=== PATIENT | female | born 1950 | race Caucasian/White ===

== ENCOUNTER 2021-02-01 05:13 | Inpatient (IN) ==
--- NOTE | 2021-01-04 13:47 | PAT Medication Instructions ---
Medication Instructions Date of Service January 04, 2021 Home Medications acetaminophen 500 mg tablet 500 mg PO Q6H PRN ascorbic acid (vitamin C) 1,000 mg tablet 1 g PO QAM biotin 10,000 mcg capsule 10,000 mcg PO QAM calcium carbonate 600 mg (1,500 mg)-vitamin D3 2,500 unit capsule 1 cap PO BID dofetilide 250 mcg capsule 250 mcg PO Q12H metoprolol succinate 50 mg tablet,extended release 24 hr 50 mg PO QAM qbmshqdwapyo-ykghdbfm-vokxbt tablet 1 tab PO QAM vitamin B comp and C no.3 15 mg-10 mg-50 mg-5 mg-300 mg capsule 1 cap PO QAM warfarin 5 mg tablet 5 mg PO DAILY tramadol 50 mg PO BID PRN ASK your prescriber and surgeon warfarin 5 mg tablet 5 mg PO DAILY STOP taking 2 weeks before surgery biotin 10,000 mcg capsule 10,000 mcg PO QAM DO NOT take the morning of surgery ascorbic acid (vitamin C) 1,000 mg tablet 1 g PO QAM calcium carbonate 600 mg (1,500 mg)-vitamin D3 2,500 unit capsule 1 cap PO BID dlcqkairauuj-zulohfwk-hvfafl tablet 1 tab PO QAM vitamin B comp and C no.3 15 mg-10 mg-50 mg-5 mg-300 mg capsule 1 cap PO QAM Take morning of surgery With a small sip of water, OTHERWISE NOTHING TO EAT OR DRINK AFTER MIDNIGHT: acetaminophen 500 mg tablet 500 mg PO Q6H PRN (okay to take up to 4 hours prior to surgery if needed) dofetilide 250 mcg capsule 250 mcg PO Q12H metoprolol succinate 50 mg tablet,extended release 24 hr 50 mg PO QAM tramadol 50 mg PO BID PRN (okay to take up to 4 hours prior to surgery if needed) Take evening before surgery acetaminophen 500 mg tablet 500 mg PO Q6H PRN (if needed) calcium carbonate 600 mg (1,500 mg)-vitamin D3 2,500 unit capsule 1 cap PO BID dofetilide 250 mcg capsule 250 mcg PO Q12H tramadol 50 mg PO BID PRN (if needed) Other Notes If you have any questions please call us at [phone] or [phone] or [phone] or [phone]
--- NOTE | 2021-01-09 14:39 | Anesthesiology Consultation ---
Date of Service January 09, 2021 Assessment & Plan (1) Encounter for pre-operative examination: Chart Review Chart Review: Acceptable Risk for Surgery (pending preop Covid testing ) and Patient seen in Pre Admission Testing Pt states she is allergic to plasma- had shaking and syncope after transfusion- possible reaction to specific transfusion in the past. - Check coags AM DOS Per nursing assessment 12/26/2020, patient resides in [facility]. Travels to [facility] for medical appts. Uses PPE. No known Covid positive contacts or Covid related symptoms. No known Covid infection in the past 90 days. Pt scheduled for preop Covid testing 01/29/21= will await results. Educated on importance of self quarantining, social distancing and wearing mask in public both for the patient and household contacts. Last seen by cardiology 09/11/2020 = paroxysmal A. fibstatus post pulmonary vein isolation procedure. On warfarin. Cardiomyopathypossibly tachycardia induced. No cardiac catheterization. Resolved. Atrial fibrillation at this time appears to be adequately controlled. Continue current medications. Will reassess in 6 months. If she has significant burden of atrial fibrillation, will proceed with repeat pulmonary vein isolation procedure. Teaching & Discussion Pre-Anesthesia Teaching/Discussion Notes: Instructed NPO after midnight before surgery,except medications with 15 cc of water. Medication instructions provided according to the PAT guidelines. History Surgery Operation Date: 02/01/21 10:40 Proposed Procedures p Left Reverse Total Shoulder Arthroplasty - Crispin Huerta, Height/Weight Height: 5 ft 2 in Weight: 72.1 kg Allergies Allergy/AdvReac Type Severity Reaction Status Date / Time codeine Allergy Mild Hives Verified 12/26/20 11:02 latex Allergy Mild red sore Verified 12/26/20 11:02 plasma protein fraction Allergy Mild Shaking, Verified 01/09/21 15:13 syncope silver Allergy red sore Verified 12/26/20 11:02 [From Teg[employer]erm [employer] Mesh] Medications Home Medications Medication Instructions Recorded Confirmed Last Taken acetaminophen 500 mg tablet 500 mg PO Q6H PRN 12/18/20 12/26/20 Unknown ascorbic acid (vitamin C) 1,000 mg 1 g PO QAM tab 12/18/20 12/26/20 Unknown tablet biotin 10,000 mcg capsule 10,000 mcg PO QAM 12/18/20 12/26/20 Unknown calcium carbonate 600 mg (1,500 1 cap PO BID 12/18/20 12/26/20 Unknown mg)-vitamin D3 2,500 unit capsule dofetilide 250 mcg capsule 250 mcg PO Q12H 12/18/20 12/26/20 Unknown metoprolol succinate 50 mg 50 mg PO QAM 12/18/20 12/26/20 Unknown tablet,extended release 24 hr rkbpkcdmoocb-vtdtewew-ezxvpo tablet 1 tab PO QAM 12/18/20 12/26/20 Unknown vitamin B comp and C no.3 15 mg-10 1 cap PO QAM 12/18/20 12/26/20 Unknown mg-50 mg-5 mg-300 mg capsule warfarin 5 mg tablet 5 mg PO DAILY 12/18/20 12/26/20 Unknown tramadol 50 mg PO BID PRN 12/26/20 12/26/20 Unknown Past Medical History Medical History (Updated 01/09/21 @ 15:16 by Shanon Mondragon PA-C) Atrial fibrillation Dx'ed 2010 S/p cardioversion in 2011/May 2013 Ablation 2015 On Warfarin since 2011 Follows with cardio- planning for cardiac ablation - possibly in March 2021 GERD (gastroesophageal reflux disease) Stable Hx of skin cancer, basal cell S/p removal Hypertension Osteoarthritis Exercise / Class Metabolic Activity II 4-5 Yardwork/Stairs/Walk up hill (one flight of stairs - no chest pain or SOB ) Past Surgical History Surgical History (Updated 01/09/21 @ 15:16 by Shanon Mondragon PA-C) History of cardioversion 2011 History of carpal tunnel surgery of left wrist Hx of colonoscopy Hx of esophagogastroduodenoscopy Hx of hysterectomy uterine cancer- no chemo had radiation x 3 Hx of repair of right rotator cuff Hx of tonsillectomy Past Anesthesia History No Hx of Anesthesia Complications (with exception to slow to wake - no reintubation or ICU stay ) and No Family Hx of Anesthesia Complications History of PONV No Hx of PONV and No Hx of Motion Sickness Social History Smoking Status: Never smoker Do You Dip or Chew Tobacco: No Hx Alcohol Use: No Hx Substance Use: No substance use type: does not use Review of Systems Occ palpitations secondary to a fib Patient denies chest pain, shortness of breath at rest, cough, wheezing. No hx of seizures, stroke, MO, apnea/snoring. No hx of blood clots or blood transfusions Physical Exam Vital Signs VITALS BP 119/81 P 74 TEMP 98.8 SP02 94% RESP 16 Constitutional no acute distress ENMT Mouth: no TMJ clicking Thyromental Distance: > or= 3.5 Finger Breadths (3.5) Mallampati Class: III Missing molars/side teeth [place] to moar Neck neck extension not limited Respiratory normal respiratory effort; no respiratory distress Auscultation: lungs clear to auscultation bilaterally; no wheezes Cardiovascular Rate/Rhythm: regular rate and regular rhythm Heart Sounds: no murmur Vessels: no carotid bruit Musculoskeletal Spine: no pain with cervical ROM Extremities: extremities normal to inspection Psychiatric Orientation: alert Testing Laboratory Results 01/09/21 15:05 01/09/21 15:05 PT 17.5 Seconds (9.0-12.0) H 01/09/21 15:05 INR 1.8 (0.9-1.1) H 01/09/21 15:05 APTT 34.6 Seconds (21.0-31.0) H 01/09/21 15:05 Blood Type O Positive 01/09/21 15:05 Antibody Screen NEGATIVE 01/09/21 15:05 Electrocardiogram Date: 09/11/20 Findings: + NSR @ (60 bpm) Normal EKG. Chest X-Ray Date: 01/09/21 Findings: + NAD Echocardiogram Date: 07/13/20 EF: 60-65% LV Function: normal RWMA: + none Other Findings: + LVH (Borderline/concentric) and + diastolic dysfunction (Grade 1) Valvular Disease: + no significant valvular disease Normal right ventricular size and systolic function. No pericardial effusion is seen.
--- NOTE | 2021-01-09 15:36 | XRay Report ---
XR chest Pre-admission PA/Lat HISTORY: 70 years-old Female pat preoperative exam. No acute chest complaints COMPARISON: None TECHNIQUE: PA and lateral views of the chest FINDINGS: Cardiomediastinal and hilar silhouettes are within normal limits. No pneumothorax, pleural effusion, airspace consolidation or overt pulmonary edema. Degenerative changes of the shoulders and spine. Lik heaven chronic lower thoracolumbar compression deformity. IMPRESSION: No acute process. ACT 112: Negative or not required by law. The above report was generated using voice recognition software. It may contain grammatical, syntax o r spelling errors. Electronically signed by: Shilo Johns M.D. 01/09/2021 3:35 PM
[2021-01-09 16:19] LABS: Basophils # (auto) 0.03 K/uL (0-0.2); Basophils % (auto) 0.4 %; Eosinophils # (auto) 0.23 K/uL (0-0.5); Hematocrit (blood only) 43.2 % (37-47); Hemoglobin 14.2 g/dL (12.0-16.0); Immature Granulocytes # (auto) 0.01 K/uL (0.00-0.02); Immature Granulocytes % (auto) 0.1 %; Lymphocytes # (auto) 1.74 K/uL (1.2-3.4); Mean Corpuscular Hgb Conc 32.9 g/dL (32-36); Mean Corpuscular Volume 91.1 fL (80-100); Mean Platelet Volume 11.5 fL (7.4-10.4); Monocytes # (auto) 0.52 K/uL (0.11-0.59); Monocytes % (auto) 6.9 %; Neutrophils # (auto) 5.03 K/uL (1.4-6.5); Neutrophils % (auto) 66.6 %; Platelet Count 200 K/uL (130-400); RDW Coefficient of Variation 14.3 % (11.5-14.5); RDW Standard Deviation 48.5 fL (36.4-46.3); Red Blood Count 4.74 M/uL (4.2-5.4); White Blood Count 7.56 K/uL (4.8-10.8)
[2021-01-09 16:42] LABS: INR 1.8 (0.9-1.1); Partial Thromboplastin Ratio 1.3; Partial Thromboplastin Time 34.6 Seconds (21.0-31.0); Prothrombin Time 17.5 Seconds (9.0-12.0)
[2021-01-09 17:18] LABS: BUN Creatinine Ratio 18.2 (10-20); Calcium 9.1 mg/dl (8.5-10.1); Creatinine Clr Calc Pharmacy 48.2 ml/min; Est GFR (African American) 66.8; Est GFR (Non-African American) 57.6; Potassium 3.9 mmol/L (3.5-5.1)
--- NOTE | 2021-01-31 10:34 | History & Physical Report ---
Date of Service January 31, 2021 Assessment & Plan (1) Osteoarthritis of left shoulder: We will proceed with a left reverse shoulder arthroplasty. Postoperatively she will be placed in a sling and kept overnight in the hospital for postoperative medical management. She plans to go to [facility] physical therapy upon discharge. History of Present Illness Chief Complaint: Rotator cuff arthropathy of the left shoulder. Primary Care Provider: Jesse Taveras MD Hortencia is a pleasant 69-year-old female who is been dealing with chronic increasing left shoulder pain. X-rays, MRI, and clinical examination were diagnostic for advanced osteoarthritis of the left shoulder. She does have some high-grade partial-thickness rotator cuff tearing as well. After failing extensive conservative treatment, she has elected proceed with a left reverse shoulder arthroplasty. Allergies Allergy/AdvReac Type Severity Reaction Status Date / Time codeine Allergy Mild Hives Verified 12/26/20 11:02 latex Allergy Mild red sore Verified 12/26/20 11:02 plasma protein fraction Allergy Mild Shaking, Verified 01/09/21 15:13 syncope silver Allergy red sore Verified 12/26/20 11:02 [From Tegaderm [employer] Mesh] Home Medications Medication Instructions Recorded Confirmed Type acetaminophen 500 mg tablet 500 mg PO Q6H PRN 12/18/20 12/26/20 History ascorbic acid (vitamin C) 1,000 mg 1 g PO QAM tab 12/18/20 12/26/20 History tablet biotin 10,000 mcg capsule 10,000 mcg PO QAM 12/18/20 12/26/20 History calcium carbonate 600 mg (1,500 1 cap PO BID 12/18/20 12/26/20 History mg)-vitamin D3 2,500 unit capsule dofetilide 250 mcg capsule 250 mcg PO Q12H 12/18/20 12/26/20 History metoprolol succinate 50 mg 50 mg PO QAM 12/18/20 12/26/20 History tablet,extended release 24 hr pnhgjxkltdcm-tkunkkec-sobgyp tablet 1 tab PO QAM 12/18/20 12/26/20 History vitamin B comp and C no.3 15 mg-10 1 cap PO QAM 12/18/20 12/26/20 History mg-50 mg-5 mg-300 mg capsule warfarin 5 mg tablet 5 mg PO DAILY 12/18/20 12/26/20 History tramadol 50 mg PO BID PRN 12/26/20 12/26/20 History Past Med/Surg History Medical History Atrial fibrillation Dx'ed 2010 S/p cardioversion in May 2013 Ablation 2015 On Warfarin since 2011 Follows with cardio- planning for cardiac ablation - possibly in March 2021 GERD (gastroesophageal reflux disease) Stable Hx of skin cancer, basal cell S/p removal Hypertension Osteoarthritis Surgical History History of cardioversion 2011 History of carpal tunnel surgery of left wrist Hx of colonoscopy Hx of esophagogastroduodenoscopy Hx of hysterectomy uterine cancer- no chemo had radiation x 3 Hx of repair of right rotator cuff Hx of tonsillectomy Social History Smoking Status: Never smoker Second Hand Exposure: No; Do You Dip or Chew Tobacco: No; Tobacco Cessation Education Requested by Patient: No Hx Alcohol Use: No Hx Substance Use: No Preferred Language: Icelandic Communication Ability: Effective Sports Management Internship Required: No Beliefs That Will Affect Care: None Current Living Situation: Spouse Other Information That Helps Us Care for You: No Feels Safe at Home: Yes Safety Concerns: Feels Safe At This Time Assistive Devices: Glasses Review of Systems All systems reviewed & are unremarkable except as noted in HPI & below. Physical Exam On physical examination of the left shoulder, she has about 120 degrees of forward elevation and 120 degrees of abduction. She has 5-5 motion with full can test and external rotation but she has a lot of crepitus and a lot of pain.. Constitutional WD/WN, vitals as above Eyes PERRL, conjunctivae normal, anicteric sclerae ENMT external ear and nose normal, oropharynx normal Neck trachea midline, no thyromegaly Respiratory normal respiratory effort Cardiovascular RRR, no murmur, no edema Gastrointestinal (Abdomen) normal bowel sounds, soft, nontender, no hepatosplenomegaly Psychiatric A+Ox3, euthymic affect Results & Data Results & Data Laboratory Results . Diagnostic Findings X-rays of the left shoulder do show advanced osteoarthritis with joint space narrowing, osteophyte formation, and qvkl-bj-rgsp articulation. MRI of the left shoulder shows thinning and high-grade partial-thickness tearing of the rotator cuff as well as advanced osteoarthritis.. PG Care Time/CCT Total # of Minutes Spent Total Time Spent with Patient: Total time spent is greater than 50% in coordination of care (as documented) at patient's floor/unit and/or counseling patient: Coding Level of Care Code None Diagnoses Osteoarthritis of left shoulder M19.012
[2021-02-01] MEDS ORDERED: TRANEXAMIC ACID 1,000 MG **IV Pre-op IV SCH (06:00)
[2021-02-01] MEDS ORDERED: dexAMETHasone 4 MG TAB PO SCH (06:00)
[2021-02-01] MEDS ORDERED: GABAPENTIN 300 MG CAP PO SCH (06:00)
[2021-02-01] MEDS ORDERED: FAMOTIDINE 20 MG TAB PO SCH (06:00)
[2021-02-01] MEDS ORDERED: ROPIVACAINE 0.5% HCL/PF 150 MG, BUPIVACAINE 0.75% MPF 20 ML, EPINEPHrine 30MG/30ML (OR ... INFIL SCH (06:00)
[2021-02-01] MEDS ORDERED: LR 15ML/HR IV SCH (06:00)
[2021-02-01] MEDS ORDERED: TRANEXAMIC ACID 1,000 MG **IV Intra-op IV SCH (06:00)
[2021-02-01] MEDS ORDERED: ACETAMINOPHEN 500 MG TAB PO SCH (06:00)
[2021-02-01] MEDS ORDERED: LR 60ML/HR IV SCH (06:00)
[2021-02-01] MEDS ORDERED: ceFAZolin 1000MG 1,000 MG/7.5 ML SYR IV SCH (06:00)
[2021-02-01 06:10] LABS: Partial Thromboplastin Time 26.8 Seconds (21.0-31.0); Prothrombin Time 10.4 Seconds (9.0-12.0)
--- NOTE | 2021-02-01 06:10 | History & Physical Bridge Note ---
Date of Service February 01, 2021 History & Physical Bridge Note I have examined the patient, reviewed the History & Physical and in the interval since the performance of the History & Physical I have noted the following changes of clinical significance: no changes noted
[2021-02-01] MEDS ORDERED: BUPIVACAINE 0.5 % 5 MG/1 ML PF 10ML VIAL ONE (06:21)
[2021-02-01] MEDS ORDERED: PROPOFOL IV EMULSION 10 MG/ML 20 ML VIAL IV ONE (06:24)
[2021-02-01] MEDS ORDERED: GLYCOPYRROLATE 0.2 MG/ML VIAL ONE (06:24)
[2021-02-01] MEDS ORDERED: ONDANSETRON INJ 2 MG/ML 2 ML VIAL ONE (06:24)
[2021-02-01] MEDS ORDERED: DEXAMETHASONE SOD INJ 4 MG/ML VIAL ONE (06:24)
[2021-02-01] MEDS ORDERED: NEOSTIGMINE METHYLSULFATE 5 MG/5 ML SYR ONE (06:24)
[2021-02-01] MEDS ORDERED: MIDAZOLAM HCL 1 MG/ML 2ML VIAL ONE (06:24)
[2021-02-01] MEDS ORDERED: fentaNYL citrate 100 MCG/2 ML VIAL ONE (06:24)
[2021-02-01] MEDS ORDERED: LIDOCAINE HCL 2% 2 ML VIAL/AMP(20MG/ML) INFIL ONE (06:24)
[2021-02-01] MEDS ORDERED: ePHEDrine sulfate 50 MG/ML AMP IV PRN (06:41)
[2021-02-01] MEDS ORDERED: ONDANSETRON INJ 2 MG/ML 2 ML VIAL IV PRN ×2 (06:41→09:43)
[2021-02-01] MEDS ORDERED: fentaNYL citrate 100 MCG/2 ML VIAL IV PRN (06:41)
[2021-02-01] MEDS ORDERED: ATROPINE SULFATE 0.1 MG/ML 10ML SYR IV PRN (06:41)
[2021-02-01] MEDS ORDERED: ORTHO JOINT ANESTHETIC ONE (06:45)
[2021-02-01] MEDS ORDERED: ROCURONIUM BROMIDE 10 MG/ML 5 ML VIAL IV ONE (07:21)
--- NOTE | 2021-02-01 08:18 | Operative Report ---
PG Post Operative Report Pre & Post Diagnosis Operation Date: 02/01/21 07:00 Pre-Op Diagnosis: Osteoarthritis of Left Shoulder with tendinopathy of the long head of biceps tendon Post-Op Diagnosis: Osteoarthritis of Left Shoulder with tendinopathy of the long head of the biceps tendon I identified the patient and participated in the time-out.: Yes Procedure Operation Date: 02/01/21 07:00 Actual Procedures p Left Reverse Total Shoulder Arthroplasty-- Not Cemented with open biceps tenodesis as a distinct and separate procedure (modifier 59) (Left) - Crispin Huerta DO Surgeon Crispin Huerta DO Statistics Manager Crispin Lane PAC Estimated Blood Loss 200 Findings Consistent with Post-Op Diagnosis Specimens Left humeral head Complications none Disposition Disposition: Recovery Room Indications Hortencia is a pleasant 70-year-old female who is been doing with chronic increasing left shoulder pain. X-rays show advanced arthritis. An MRI showed a compromised rotator cuff. After failing conservative treatment, she elected proceed with a left reverse shoulder arthroplasty. Description of Procedure A CPT code modifier 59: The long head of the biceps tendon was enlarged and inflamed consistent with tendinopathy. A tenodesis was opted. This was a separate and distinct portion of the procedure. For these reasons, a CPT code modifier 59 will be added to this case. Implants used: I used a [employer]omet Comprehensive reverse total shoulder arthroplasty system with a size 10 press fit micro humeral stem, a +3 offset humeral tray and a standard humeral bearing, a 25 mm small augment baseplate with a 6.5 mm central screw and superior and inferior locking screws, and a size 40 mm eccentric glenosphere. Hortencia arrived at [facility] for the above procedure. She was seen in the preoperative holding area and the operative extremity was identified and signed. She was given a preoperative antibiotic, TXA, and an interscalene nerve block. She was taken back to the operating room, laid on table in supine position, and put under general anesthesia. She was then put into the beachchair position. The shoulder was then prepped and draped in sterile fashio n. A timeout was done and the patient and the operative extremity was properly identified. A deltopectoral approach was used. Dissection was taken down through the fascia and the deltoid was retracted laterally and the conjoined tendon was retracted medially. The anterior shoulder was exposed. The biceps groove was opened up and the biceps tendon was examined extensively. The biceps tendon demonstrated enlargement and inflammatory changes consistent with longstanding inflammation in the context of osteoarthritis and cuff arthropathy. The long head of the biceps tendon was then tenodesed to the upper border of the pectoralis major. This was a separate and distinct portion of the procedure. The subscapularis was then directly released off the lesser tuberosity with a peel technique. The inferior capsule was released and the humeral head was dislocated. A canal finding reamer was sent down the center of the humeral canal. Sequential reaming up to a size 10 reamer was done. Off that reamer, a proximal humeral resection guide was placed. The proximal humerus was resected at 135 of inclination and 25 of retroversion. Osteophytes were then removed and the glenoid was exposed. Time was spent doing a complete capsular and labral release. The glenoid guide was then placed in the inferior aspect of the glenoid. A 3.2 mm Steinmann pin was then placed into the glenoid vault at 10 of inclination. The glenoid baseplate was then reamed. The final size 25 mm small augment baseplate was then impacted in the place. A 6.5 mm central screw was then placed followed by superior and inferior locking screws. A 40 mm eccentric glenosphere was then impacted into place. Surrounding soft tissues were then injected with 100 cc an orthopedic pain control cocktail. The proximal humerus was then exposed. Sequential broaching of the humerus up to a size 10 broach was done. Off that broach a +3 offset humeral tray was trialed. The shoulder was then reduced, brought through a full range of motion, and felt to be stable. The shoulder was then dislocated and the broach was removed. The final size 10 micro press-fit humeral stem was then impacted into place. A standard humeral bearing was then snapped onto a +3 offset humeral tray. The humeral tray was then impacted onto the humeral stem. The shoulder was once again reduced, brought through a full range of motion, and felt to be stable. The subscapularis was then tenodesed back to the lesser tuberosity with transosseous FiberWire sutures and side to side sutures with the arm in 45 of external rotation. A dilute betadyne lavage was then done for 3 minutes. The joint was then irrigated with normal saline solution. Hemostasis was obtained. The interval was closed with 2-0 Vicryl suture. The skin was then closed with 2-0 Vicryl and zenaida. A Silverlon dressing was placed and the arm was rested in a regular arm sling. She was then extubated and transferred to a hospital bed. She taken to the postanesthesia care unit in stable condition. She tolerated the procedure well. Crispin Lane PA-C, was present for the entire procedure. He was critical for patient positioning, prepping, draping, retraction exposure, wound closure and application of sterile dressing. I attest to the content of the Intraoperative Record and any orders documented therein. Any exceptions are noted below.
--- NOTE | 2021-02-01 08:50 | XRay Report ---
XR shoulder LT min 2V routine CLINICAL HISTORY: Post shoulder surgery COMPARISON STUDY: None. FINDINGS: Status post reverse left total shoulder arthroplasty. The hardware is intact. No fracture o r dislocation. Skin zenaida are in place. Left lung basilar densities are noted IMPRESSION: 1. Status post left reverse total shoulder arthroplasty. No evidence for hardware complication. 2. Left lung basilar densities. This may represent atelectasis or pneumonia. ACT 112: Negative or not required by law. Electronically signed by: Fuad Kuhn M.D. 02/01/2021 8:49 AM
[2021-02-01] MEDS ORDERED: ALBUTEROL 0.083% NEBU SOLN 3 ML VIAL NEB STA (08:57)
--- NOTE | 2021-02-01 09:34 | Anesthesiology Progress Note ---
Date of Service February 01, 2021 Anesthesia Post Procedure Vital Signs Vital Signs: Temp Pulse Pulse Resp BP Pulse Ox 02/01/21 09:30 79 20 136/93 99 02/01/21 09:20 98.1 F 79 20 159/78 H 99 02/01/21 09:10 65 22 161/96 H 100 02/01/21 09:00 67 21 152/91 H 98 02/01/21 08:50 65 18 161/92 H 98 02/01/21 08:40 67 20 153/90 H 100 02/01/21 08:30 64 16 159/93 H 100 02/01/21 08:22 97.7 F 78 17 150/93 H 100 02/01/21 05:55 97.5 F L 76 22 155/93 H 97 Pain Intensity Left Shoulder: Pain Intensity: 1 Left Knee: Pain Intensity: 2 Transfer of Care Handoff Completed per policy Notes Mental Status: alert / awake / arousable and participated in evaluation Patient Amnestic to Procedure: Yes Nausea / Vomiting: adequately controlled Pain: adequately controlled Airway Patency, RR, SpO2: stable & adequate BP & HR: stable & adequate Hydration State: stable & adequate Anesthetic Complications: no major complications apparent and Pt Satisfied with anesthetic care
[2021-02-01] MEDS ORDERED: traMADol HCL 50 MG TABLET PO PRN (09:43)
[2021-02-01] MEDS ORDERED: HYDROmorphone INJ 0.5 MG/0.5 ML SYR IV PRN (09:43)
[2021-02-01] MEDS ORDERED: NALOXONE HCL 0.4 MG/1 ML VIAL/CARP IV PRN (09:43)
[2021-02-01] MEDS ORDERED: METOCLOPRAMIDE HCL INJ 5 MG/ML 2 ML VIAL IV PRN (09:43)
[2021-02-01] MEDS ORDERED: MAGNESIUM HYDROXIDE SUSP 30 ML UDC PO PRN (09:43)
[2021-02-01] MEDS ORDERED: bisacodyL 10 MG SUPP PR PRN (09:43)
[2021-02-01] MEDS ORDERED: ACETAMINOPHEN 500 MG TAB PO PRN (10:00)
[2021-02-01] MEDS: SODIUM CHLORIDE 0.9% 1000ML 1,000 ML IV SCH ×2 (10:07→20:32)
[2021-02-01] MEDS: MULTIVITAMIN TAB PO SCH (11:25)
[2021-02-01] MEDS: DOCUSATE SODIUM 100 MG CAP PO SCH ×2 (11:25→20:33)
[2021-02-01] MEDS: CALCIUM 600MG + VIT D 400 IU TAB PO SCH ×2 (11:25→20:33)
[2021-02-01] MEDS: KETOROLAC TROMETHAMINE 15 MG/ML VIAL IV SCH ×3 (11:26→23:46)
[2021-02-01] MEDS: VITAMIN B COMPLEX TAB PO SCH (11:26)
[2021-02-01] MEDS: ceFAZolin 1000MG 1,000 MG/7.5 ML SYR IV SCH ×2 (14:06→23:41)
[2021-02-01] MEDS ORDERED: WARFARIN SOD 5 MG TAB PO SCH (16:00)
[2021-02-01] MEDS ORDERED: BACITRACIN INJ 50,000 UNIT VIAL ONE (16:59)
[2021-02-01] MEDS: DOFETILIDE 125 MCG CAPSULE PO SCH (20:33)
[2021-02-01] MEDS ORDERED: SENNA 8.6 MG TAB PO SCH (21:00)
[2021-02-02] MEDS: KETOROLAC TROMETHAMINE 15 MG/ML VIAL IV SCH (04:59)
--- NOTE | 2021-02-02 07:09 | Orthopedic Progress Note ---
Date of Service February 02, 2021 Assessment & Plan (1) Status post reverse arthroplasty of left shoulder: Overall she is doing very well. She is not having much pain in the left shoulder. She will be seen by physical therapy today for ambulation and range of motion exercises. She already has pain medications at home. She can be discharged home later today. She will follow-up with orthopedics in 2 weeks. Becca Burnett was seen and examined at bedside this morning. Overall she is doing very well. She denies any pain in the left shoulder. She was able to get some sleep last night. She has no complaints.. Review of Systems All systems reviewed & are unremarkable except as noted in HPI & below. Physical Exam On physical examination of her left shoulder, the dressing is clean and dry. Her radial, median, and ulnar nerves are checked intact at her wrist. She is wearing her sling as instructed.. Results & Data Results & Data Laboratory Results . Diagnostic Findings Postoperative x-rays of the left shoulder show the prosthesis to be in anatomic alignment without any evidence of fracture, dislocation, or loosening.. PG Care Time/CCT Total # of Minutes Spent Total Time Spent with Patient: Total time spent is greater than 50% in coordination of care (as documented) at patient's floor/unit and/or counseling patient: Coding Level of Care Code 40620 Post Operative Follow-Up Diagnoses Status post reverse arthroplasty of left shoulder Z96.612
--- NOTE | 2021-02-02 07:10 | Discharge Summary ---
Date of Service February 02, 2021 Admission HPI (Per Admitting) Hortencia is a pleasant 69-year-old female who is been dealing with chronic increasing left shoulder pain. X-rays, MRI, and clinical examination were diagnostic for advanced osteoarthritis of the left shoulder. She does have some high-grade partial-thickness rotator cuff tearing as well. After failing extensive conservative treatment, she has elected proceed with a left reverse shoulder arthroplasty. Admission Exam (Per Admitting) On physical examination of the left shoulder, she has about 120 degrees of forward elevation and 120 degrees of abduction. She has 5-5 motion with full can test and external rotation but she has a lot of crepitus and a lot of pain.. Principal Diagnosis Same as "Discharge Diagnosis" noted below under Discharge Instructions. Discharge Exam On physical examination of her left shoulder, the dressing is clean and dry. Her radial, median, and ulnar nerves are checked intact at her wrist. She is wearing her sling as instructed.. Discharge Data Procedures Performed Operation Date: 02/01/21 07:00 Actual Procedures p Left Reverse Total Shoulder Arthroplasty-- Not Cemented(Left) - Crispin Huerta DO Ordered Studies 02/01/21 05:00 US - OR guided needle placemen Routine Hospital Course (1) Status post reverse arthroplasty of left shoulder: On February 01, 2021 Hortencia arrived at [facility] and underwent a left reverse shoulder arthroplasty without complication. She had a general anesthetic and a left interscalene nerve block. Postoperatively she was placed in a sling and transferred to the general orthopedic floors. Her hospital course was uneventful. On postop day #1 her vital signs were stable and her pain was well controlled. She was able to participate well with physical therapy doing ambulation and range of motion exercises. She was then discharged home. She will follow-up with orthopedics in 2 weeks. PG Care Time/CCT Total # of Minutes Spent Total Time Spent with Patient: Total time spent is greater than 50% in coordination of care (as documented) at patient's floor/unit and/or counseling patient: Discharge Plan Discharge Items Patient Disposition: Home - Home Health Services Reason For Visit: Degenerative Joint Disease Left Shoulder Discharge Diagnosis: Left reverse shoulder replacement Activity: As commented below Non-emergency contact: Surgeon Call non-emergency contact if: your wound has increased redness and your wound has increased drainage Follow-up/Referrals: Jesse Taveras MD [Primary Care Provider] - Diet: Regular Addtl Attending Provider Instructions: Activity and Therapy Recommendations: * If you are using [facility] then therapy will be provided at your home until they feel you have accomplished all of your goals. * If you are using [facility] then Physical Therapy will be provided until they feel you are ready to start Outpatient Physical Therapy. * If you are not using home therapy then Outpatient Physical Therapy should start about 3-5 days from your day of surgery. Therapy will last about 8-12 weeks * Wear your sling for 3 weeks, unless otherwise instructed. You may remove your sling to shower and to dress, but otherwise, you should be in your sling at all times, including while sleeping * The shoulder replacement is very stable and you can use your hand while in the sling * You were shown a series of exercises in the hospital. Do these exercises daily including the exercises you were shown in physical therapy. Medications: * Narcotic You will likely be sent home from the hospital with a prescription for the narcotic pain medication that worked best throughout your stay. * Other medications may be prescribed for specific circumstances. If you have any questions, please call the office at . * Resume previous home medications unless otherwise instructed Dressing Care: Leave the Silverlon dressing in place for 7 days. After 7 days you may remove the dressing. If the incision is not draining then you may leave the zenaida open to air. If there is a little bit of drainage or if the zenaida are getting stuck on your clothing then cover the incision with a dry dressing. The zenaida will be removed at your 2 week follow-up appointment. Showering: You may shower with the Silverlon dressing in place. Do not let the shower spray hit the dressing directly. Pat the Silverlon dressing dry. If the dressing becomes wet underneath, then simply remove the dressing. Keep the incision dry until you are 7 days out from the day of surgery. After 7 days you may remove the Silverlon dressing and shower with the zenaida exposed. Let soapy water run over the zenaida and pat them dry. Do not scrub or soak the incision. Things To Watch For: * Drainage from the incision site that occurs more than one week after your surgery. * Increased redness at the incision site. * Fever above 102 degrees Fahrenheit. * Unusual chest pain or shortness of breath. * Call [facility] at with any of the above problems Follow-Up Visit: Follow-up with Dr. Huerta's PA (Crispin Lane) 2-3 weeks after your day of surgery. He will remove your zenaida and answer any questions. If you have any additional questions or concerns, Dr Huerta is usually in the office at the same time and will be available An appointment was probably scheduled when you signed-up for surgery in the office. If you have any questions call More detailed instructions as well as Frequently Asked Questions were provided in a folder by our office when you signed-up for surgery. Please review these instructions when you get home. If you have any further questions or concerns, please feel free to call the office at [phone] Pending Studies at Discharge: No Stand-Alone Forms: [facility], Smoking Cessation Medications and DC Order Prescriptions: Continued warfarin [Jantoven] 5 mg tablet 5 mg PO DAILY RF: 0 metoprolol succinate 50 mg tablet extended release 24 hr 50 mg PO QAM RF: 0 dofetilide [Tikosyn] 250 mcg capsule 250 mcg PO Q12H RF: 0 ascorbic acid (vitamin C) 1,000 mg tablet 1 g PO QAM RF: 0 calcium carbonate-vitamin D3 600 mg (1,500 mg)-2,500 unit capsule 1 cap PO BID RF: 0 biotin 10,000 mcg capsule 10,000 mcg PO QAM RF: 0 [id number] Tablet 1 tab PO QAM RF: 0 acetaminophen [Tylenol Extra Strength] 500 mg tablet 500 mg PO Q6H PRN (Reason: Pain) RF: 0 B Complex Plus Vitamin C [id number] mg capsule 1 cap PO QAM RF: 0 tramadol 50 mg Tablet 50 mg PO BID PRN (Reason: Pain) RF: 0 Discharge Orders: Discharge Order (Routine); Ordered 02/02/21 Ordered By: Crispin Huerta Admission Data Admit Date/Time: 02/01/21 07:02 Attending Provider: Crispin Huerta Admit Provider: Crispin Huerta Primary Care Provider: Jesse Taveras
[2021-02-02] MEDS ORDERED: dexAMETHasone 4 MG TAB PO SCH (08:00)
[2021-02-02] MEDS: DOCUSATE SODIUM 100 MG CAP PO SCH (08:47)
[2021-02-02] MEDS: CALCIUM 600MG + VIT D 400 IU TAB PO SCH (08:47)
[2021-02-02] MEDS: MULTIVITAMIN TAB PO SCH (08:48)
[2021-02-02] MEDS: DOFETILIDE 125 MCG CAPSULE PO SCH (08:48)
[2021-02-02] MEDS: VITAMIN B COMPLEX TAB PO SCH (08:51)
[2021-02-02] MEDS ORDERED: ASCORBIC ACID 500 MG TAB PO SCH (09:00)
[2021-02-02] MEDS ORDERED: METOPROLOL SUCC 50MG EXT REL TAB PO SCH (09:00)
== END 2021-02-02 11:31 | disposition home or self-care (01) | DRG 483 ==
LOC: ASU 05:13 → 3E 07:02